=== PATIENT | male | born 2000 | race Caucasian/White ===

== ENCOUNTER 2020-03-29 15:37 | Emergency (ER) | payer OTHER, SELFPAY ==
[2020-03-29 15:41] VITALS: BP 146/79; PULSE 90; RESP 18; TEMP 37.2; O2SAT 100
--- NOTE | 2020-03-29 16:12 | ED.ABDPAIN ---
HPI - Abdominal Pain General Chief Complaint: Abdominal Pain Stated Complaint: Groin Pain Time Seen by Provider: 03/29/20 16:12 Source: patient and RN notes reviewed Mode of arrival: ambulatory Limitations: no limitations History of Present Illness HPI narrative: 19 year old male who presents to [facility] care with complaint of left groin pain and to left testicle intermittently starting at 2am today. He states that pain woke him up to his left groin with no complaints of nausea, vomiting or diarrhea, denies any difficulty with his urination or any difficulty with his bowels. 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 Patient feels some swelling in the left groin region with no acute pain radiating to testicles or any swelling in scrotum at this time. MD elicited complaint: other (left groin swelling and pain) Pertinent past history: other (heavy lifting) Onset (ago): hour(s) (since this am at 0200) Pain Consistency: intermittent Location: groin (left) Severity: mild (no pain at present) Quality: aching Radiation: none Migration to: no migration Exacerbating factors: other (lifting) Relieving factors: rest Context: confirms other (heavy lifting at work) Associated symptoms: denies other symptoms Related Data Home Medications Medication Instructions Recorded Confirmed No Home Medications 03/29/20 03/29/20 Allergies Allergy/AdvReac Type Severity Reaction Status Date / Time apricot Allergy Unknown Unknown Verified 03/29/20 15:49 Review of Systems Review of Systems: Narrative: CONSTITUTIONAL: Denies fever, chills, or sweats. EYES: Denies visual changes, redness, or discharge. ENT: Denies rhinorrhea, congestion, sore throat, or otalgia. CARDIOVASCULAR: Denies chest pain, palpitations, or edema. RESPIRATORY: Denies cough or dyspnea. GASTROINTESTINAL: States discomfort to left groin area with no nausea, vomiting, or diarrhea. GENITOURINARY: Denies dysuria or hematuria, states no difficulty with passing uring SKIN: Denies rash or itching. MUSCULOSKELETAL: Denies back pain, joint pain, or myalgia. NEUROLOGIC: Denies headache, numbness, or weakness. PSYCHIATRIC: Denies anxiety or depression. All systems reviewed & are unremarkable except as noted in HPI and below PMFSH Past Medical History Medical History (Updated 03/30/20 @ 00:00 by Yossi Mccarty) Sinusitis Surgical History Surgical History (Updated 03/29/20 @ 16:58 by Milly Harrell NP) No history of previous surgery Social History Social History (Updated 03/29/20 @ 16:51 by Milly Harrell NP) Tobacco type: e-cigarettes/vaping Alcohol intake: unknown Substance use: unknown Living arrangements: with family Gender identity (if verbalized by the patient): Male Comments At time of signature, agree with nursing past medical, surgical, social history. There is no relevant family history pertinent to the presenting complaint Exam Narrative: Exam Narrative: GENERAL: Well-appearing, well-nourished, and in no acute distress. HEAD: Normocephalic, atraumatic. EYES: PERRLA and EOMI. ENT: Nares clear, no rhinorrhea or epistaxis. Mucous membranes moist. NECK: Supple.no lymphadenopathy CHEST: Clear to auscultation. No respiratory distress.Sao2 100% HEART: Regular rate and rhythm. No murmur heard. Normal peripheral pulses. ABDOMEN: Soft, nontender on palpation small amount distended area to left groin, normal active bowel sounds.no palpable hernia on examination of inguinal ring,denies any acute testicle pain, no swelling or pain to scrotum on examination. EXTREMITIES: Normal range of motion. No edema. SKIN: Warm, dry, no rash. NEURO: No focal deficits. Alert and oriented x3. Course Vital Signs Vital signs: Vital Signs Temperature 37.2 C 03/29/20 15:41 Pulse Rate 90 03/29/20 15:41 Respiratory Rate 18 03/29/20 15:41 Blood Pressure 146/79 H
== END 2020-03-29 16:39 | disposition home or self-care (01) ==
PROVIDERS: Emergency Provider Registered Nurse
DX: R10.32 Left lower quadrant pain (principal)
CPT/HCPCS: 99211; G0463

== ENCOUNTER 2023-09-03 19:42 | Emergency (ER) | payer OTHER, SELFPAY ==
[2023-09-03 19:48] VITALS: BP 143/74; PULSE 83; RESP 16; TEMP 37.3; O2SAT 100
--- NOTE | 2023-09-03 19:54 | ED.URI ---
HPI - URI/Sore Throat General Chief Complaint: Upper Respiratory Infection Stated Complaint: Cough/Fever/Sore Throat Time Seen by Provider: 09/03/23 19:55 Source: patient, RN notes reviewed and old records reviewed Mode of arrival: ambulatory Limitations: no limitations History of Present Illness HPI Narrative: 23 year old male who presents to [facility] care with complaints of fever, cough, sore throat for the past 5-6 days . Patient reports that his symptoms started on with headache, body aches, which were worse on Saturday and then seemed to get a little better except for the cough which he states his said occurred on every 3rd breath last night. Patient reports that he has been taking DayQuil and NyQuil for his symptoms. Patient states that he continues to have just low grade fever and sore throat. MD elicited complaint: fever, cough and sore throat Onset (ago): day(s) (5-6 days) Severity: moderate Pain scale (0-10): 5 Able to tolerate fluids by mouth: Yes Treatments prior to arrival: other (DAYQUIL AND NYQUIL) Related Data Allergies Allergy/AdvReac Type Severity Reaction Status Date / Time apricot Allergy Unknown Unknown Verified 03/29/20 15:49 Review of Systems Review of Systems: CONSTITUTIONAL:Reports malaise, chills, sweats, or fever. EYES: Denies visual changes, redness, or discharge. ENT: Reports rhinorrhea, congestion, sinus pain, NO otalgia and POSITIVE sore throat. CARDIOVASCULAR: Denies chest pain, palpitations, or edema. RESPIRATORY: Reports cough.? Denies dyspnea. GASTROINTESTINAL: Denies abdominal pain, nausea, vomiting, diarrhea SKIN: Denies rash or itching. MUSCULOSKELETAL: REPORTS myalgia. NEUROLOGIC: REPORTS headache. All systems reviewed & are unremarkable except as noted in HPI and below PMFSH Past Medical History Medical History Sinusitis Surgical History Surgical History No history of previous surgery Social History Social History Tobacco type: e-cigarettes/vaping Alcohol intake: current Alcohol use details: SOCIAL Substance use: unknown Living arrangements: with family Gender identity (if verbalized by the patient): Male Comments At time of signature, agree with nursing past medical, surgical, social and family history. There is no relevant family history pertinent to the presenting complaint Exam Narrative: GENERAL: Well-appearing, well-nourished, and in no acute distress. HEAD: Normocephalic EYES: PERRLA, conjunctivae clear ENT: Nares RED AND SWOLLEN, turbinates edematous and erythematous, YELLOW discharge. Mucous membranes moist. TM pearly blum with dull light reflex bilaterally; no tragal tenderness. Oropharynx erythematous without lesions. Tonsils RED enlarged and without exudate, no drooling, no hoarseness, no trismus, uvula midline, POST NASAL DRAINAGE NECK: Supple. No lymphadenopathy CHEST: Clear to auscultation, breath sounds equal. No wheezing, rhonchi, rales, or stridor. No respiratory distress, speaks in full sentences.HARSH COUGH NOTED, SAO2 100% ON ROOM AIR HEART: Regular rate and rhythm. No murmur heard. SKIN: Warm, dry, no rash. NEURO: Alert and oriented x3. PSYCH: Normal mood and affect Course Course Emergency Course: Patient is aware of diagnosis, understands and agrees to treatment plan.? Anticipatory guidance given.? Patient agrees to follow-up as directed and is aware of reasons to seek care at the emergency department. Portions of this record may have been created with voice recognition software Level of Care: Express Care Visit Vital Signs Vital signs: Vital Signs Temperature 37.3 C 09/03/23 19:48 Pulse Rate 83 09/03/23 19:48 Respiratory Rate 16 09/03/23 19:48 Blood Pressure 143/74 H 09/03/23 19:48 Pulse Oximetry 100
== END 2023-09-03 20:26 | disposition home or self-care (01) ==
PROVIDERS: Emergency Provider Registered Nurse
DX: J06.9 Acute upper respiratory infection, unspecified (principal); R05.1 Acute cough; Z20.822 Contact with and (suspected) exposure to COVID-19; F17.290 Nicotine dependence, other tobacco product, uncomplicated
CPT/HCPCS: 87081; 87426; 87804; 87880; 99213; G0463